=== PATIENT | female | born 1980 | race Caucasian/White ===

== ENCOUNTER 2016-12-31 13:39 | Emergency (ER) | payer SELFPAY ==
[~2016-12-31] VITALS: Ht 165.1 cm; Wt 70.6 kg
[2016-12-31 13:41] VITALS: BP 132/96
[2016-12-31] MEDS ORDERED: NAPROSYN500 MG PO (13:56)
[2016-12-31] MEDS ORDERED: PREDNISONE20 MG PO (13:56)
[2016-12-31] MEDS ORDERED: ULTRAM50 MG PO (13:56)
== END 2016-12-31 14:08 | disposition home or self-care (01) ==
LOC: EXP 13:39 → EME 13:39 → EXP 14:08
DX: M54.41 Lumbago with sciatica, right side (principal)
CPT/HCPCS: 99281; 99283

== ENCOUNTER 2017-07-17 21:14 | Emergency (ER) | payer SELFPAY ==
[~2017-07-17] VITALS: Ht 165.1 cm; Wt 77.6 kg
[~2017-07-17 21:14] MED LIST: NAPROSYN500 MG PO; PREDNISONE20 MG PO; ULTRAM50 MG PO
[2017-07-17 21:21] VITALS: BP 140/93
== END 2017-07-17 21:45 | disposition home or self-care (01) ==
LOC: EME 21:14
DX: R11.0 Nausea (principal); F41.9 Anxiety disorder, unspecified; T40.2X5A Adverse effect of other opioids, initial encounter; M54.9 Dorsalgia, unspecified; G89.29 Other chronic pain
CPT/HCPCS: 99281; 99284